=== PATIENT | female | born 1975 | race Caucasian/White ===

== ENCOUNTER → 2020-04-21 | Outpatient (CLI) | payer OTHER ==
[~2020-04-21] MED LIST: anti depressant PO
--- NOTE | 2020-04-22 02:07 | RAD ---
EXAM: XR KNEE_AP BILAT STANDING, XR KNEE 1-2 VIEWS. HISTORY: Bilateral knee pain. COMPARISON: None. FINDINGS: On the right, there is mild lateral compartmental joint space narrowing. There are small to moderate osteophytes along all 3 compartments. There is a moderate joint effusion. No fractures are identified. There is mild exaggeration of valgus angulation. On the left, there is moderate lateral compartmental joint space narrowing. There are small osteophyt es along all 3 compartments. There is a small joint effusion. No fractures are identified. There is e xaggeration of valgus angulation. IMPRESSION: 1. Lateral compartment predominant osteoarthritis is moderate on the left and mild on the right. Electronically signed by: Jonn Cosme MD (04/22/2020 2:05 AM) [facility]
== END ==
LOC: DXRAD 15:18
PROVIDERS: ATTEND Physician Assistant
DX: M25.562 Pain in left knee (principal)
CPT/HCPCS: 73560; 73565

== ENCOUNTER → 2021-01-25 | Outpatient (CLI) | payer OTHER ==
--- NOTE | 2021-01-26 11:21 | RAD ---
Exam: CT abdomen/pelvis without intravenous contrast Indication: Hematuria for 2 months, lower middle back pain Comparison: None Technique: Helical CT imaging performed of the abdomen and pelvis without the use of intravenous cont rast. Sagittal and coronal reformats were obtained. One or more of the following individualized dose reduction techniques were utilized for this examinat ion: 1. Automated exposure control 2. Adjustment of the mA and/or kV according to patient size 3. Use of iterative reconstruction technique. Findings: Inherently limited evaluation without intravenous contrast. Lower chest: Lung bases are clear. Heart is normal in size. Liver: Unremarkable noncontrast appearance of the liver. Gallbladder/Biliary Tree: Gallbladder is surgically absent. Bile ducts are normal. Pancreas: Normal. Spleen: Normal. Adrenal Glands: Normal. Kidneys/Ureters/Bladder: There is a staghorn calculus in the left renal pelvis extending into the inf erior pole calyces. This measures at least 3 cm in length. There is minimal left hydronephrosis. Mild fat stranding at the left renal pelvis and along the left ureter. Right kidney and ureter are normal . The bladder is normal. Reproductive Organs: Uterus is anteverted. No adnexal mass. Stomach, small bowel, and colon: Stomach is normal. There is no small bowel obstruction. Colon and ap pendix are normal. Vasculature: Abdominal aorta is normal in caliber. Lymph Nodes: No lymphadenopathy. Peritoneum and retroperitoneum: No free fluid or free air. Bones: Mild degenerative disc disease at L5-S1. Advanced facet arthrosis at L4-L5 and L5-S1. Mild deg enerative joint disease of the hips. Miscellaneous: There are fat-containing ventral and umbilical hernias. IMPRESSION: 1. Large staghorn calculus in the left kidney with minimal hydronephrosis. There is mild inflammatio n at the left renal pelvis and along the proximal left ureter. 2. Fat-containing ventral and umbilical hernias. Electronically signed by: Radha Cordoba MD (01/26/2021 11:19 AM) [id number]
== END ==
LOC: CT 15:33
PROVIDERS: ATTEND Nurse Practitioner Family
DX: N20.0 Calculus of kidney (principal); N13.30 Unspecified hydronephrosis; K42.9 Umbilical hernia without obstruction or gangrene; M51.37 Other intervertebral disc degeneration, lumbosacral region; M16.0 Bilateral primary osteoarthritis of hip; Z90.49 Acquired absence of other specified parts of digestive tract
CPT/HCPCS: 74176